=== PATIENT | male | born 1985 | race Caucasian/White ===

== ENCOUNTER 2016-12-30 22:29 | Emergency (ER) | payer SELFPAY ==
[~2016-12-30] VITALS: Ht 175.3 cm; Wt 121.9 kg
[2016-12-31 00:03] VITALS: BP 147/85
== END 2016-12-31 00:06 | disposition home or self-care (01) ==
LOC: EME 22:29 → EXP 22:29
DX: S80.01XA Contusion of right knee, initial encounter (principal); V03.90XA Pedestrian on foot injured in collision with car, pick-up truck or van, unspecified whether traffic or nontraffic accident, initial encounter; F17.200 Nicotine dependence, unspecified, uncomplicated
CPT/HCPCS: 73564; 99281; 99284